=== PATIENT | male | born 2000 | race Caucasian/White ===

== ENCOUNTER 2021-03-12 16:37 | Emergency (ER) | payer BC, MEDICAID ==
[~2021-03-12] VITALS: Ht 177.8 cm; Wt 33.6 kg
[~2021-03-12 16:37] MED LIST: AMPH30TA3 PO; ONDA4TAB12 PO
[2021-03-12] MEDS ORDERED: ibuprofen tablet 400 MG TABLET PO ONE (17:30)
[2021-03-12] MEDS ORDERED: acetaminophen 325mg tablet PO ONE (17:30)
[2021-03-12] MEDS ORDERED: BACI1PAC7 TOP (17:53)
[2021-03-12] MEDS ORDERED: bacitracin 15gm ointment TP ONE (17:55)
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
[2021-03-12 18:16] LABS: CLARITY,URINE CLEAR (Clear); COLOR,URINE YELLOW (Yellow); GLUCOSE, URINE NEGATIVE (Neg); KETONES,URINE NEGATIVE (Neg); LEUKOCYTE ESTERASE ,URINE NEGATIVE (Neg); NITRITES, URINE NEGATIVE (Neg); OCCULT BLOOD,URINE NEGATIVE (Neg); PROTEIN,URINE NEGATIVE (Neg); UROBILINOGEN,URINE 0.2 E.U/dL (0.2-1.0)
[2021-03-12 18:17] LABS: UA COLLECTION TYPE URINAL
[2021-03-12 18:28] VITALS: BP 131/78
== END 2021-03-12 18:29 | disposition home or self-care (01) ==
LOC: ER 16:37
DX: S40.212A Abrasion of left shoulder, initial encounter (principal); M54.2 Cervicalgia; M54.9 Dorsalgia, unspecified; F17.210 Nicotine dependence, cigarettes, uncomplicated; V19.40XA Pedal cycle driver injured in collision with unspecified motor vehicles in traffic accident, initial encounter; Y93.89 Activity, other specified; Y92.89 Other specified places as the place of occurrence of the external cause; Y99.8 Other external cause status
CPT/HCPCS: 70450; 71045; 72125; 73030; 73080; 73564; 81003; 99285

== ENCOUNTER 2021-03-19 11:14 | Emergency (ER) | payer OTHER, MEDICAID ==
[~2021-03-19] VITALS: Ht 182.9 cm; Wt 74.1 kg
[~2021-03-19 11:14] MED LIST changes: +BACI1PAC7 TOP
[2021-03-19 13:09] LABS: BASOPHILS % (AUTO) 0.3 % (0-1); EOSINOPHILS # (AUTO) 0.1 X10'3 (0-0.9); HEMATOCRIT 38.5 % (42.0-52.0); HEMOGLOBIN 13.2 g/dl (14.0-17.9); LYMPHOCYTES # (AUTO) 1.2 X10'3 (1.1-4.8); LYMPHOCYTES % (AUTO) 23.3 % (21-51); MEAN CORPUSCULAR HEMOGLOBIN 31.6 PG (27.0-31.0); MEAN CORPUSCULAR HGB CONC 34.3 g/dL (33.0-36.5); MEAN CORPUSCULAR VOLUME 92.3 FL (78-98); MEAN PLATELET VOLUME 7.8 FL (7.4-10.4); MONOCYTES # (AUTO) 0.4 X10'3 (0-0.9); MONOCYTES % (AUTO) 8.9 % (2-12); NEUTROPHILS # (AUTO) 3.3 X10'3 (1.8-7.7); NEUTROPHILS % (AUTO) 65.5 % (42-75); PLATELET COUNT 213 X10'3 (140-440); RED BLOOD COUNT 4.17 X10'6 (4.70-6.10); RED CELL DISTRIBUTION WIDTH 12.8 % (11.5-14.5); WHITE BLOOD COUNT 5.1 X10'3 (4.5-11.0)
[2021-03-19 13:32] LABS: ALANINE AMINOTRANSFERASE 21 U/L (12-78); ALBUMIN 3.7 G/DL (3.4-5.0); ALBUMIN/GLOBULIN RATIO 1.3 (1.1-1.5); ALKALINE PHOSPHATASE 64 IU/L (20-180); ANION GAP 7 (8-16); ASPARTATE AMINO TRANSFERASE 11 U/L (10-37); BILIRUBIN,TOTAL 1.4 MG/DL (0.1-1.0); BLOOD UREA NITROGEN 11 MG/DL (7-18); BUN/CREATININE RATIO 13.1 (5.4-32.0); CALCIUM 8.4 MG/DL (8.5-10.1); CHLORIDE 109 MMOL/L (99-107); CREATININE 0.84 MG/DL (0.60-1.10); ETHANOL < 0.010 GM/DL (0.0-0.010); GLUCOSE 93 MG/DL (70-104); SODIUM 146 MMOL/L (135-145); TOTAL CARBON DIOXIDE 30.4 MMOL/L (24-32); TOTAL PROTEIN 6.5 G/DL (6.4-8.2); eGFR > 90 ML/MIN
[2021-03-19 13:47] LABS: URINE AMPHETAMINE SCREEN NEGATIVE (Neg); URINE BARBITUATE SCREEN NEGATIVE (Neg); URINE BENZODIAZEPINES SCREEN NEGATIVE (Neg); URINE CANNABINOID SCREEN POSITIVE (Neg); URINE COCAINE SCREEN NEGATIVE (Neg); URINE METHADONE SCREEN NEGATIVE (Neg); URINE OPIATE SCREEN NEGATIVE (Neg); URINE PHENCYCLIDINE SCREEN NEGATIVE (Neg)
[2021-03-19 14:32] VITALS: BP 121/84
== END 2021-03-19 14:33 | disposition home or self-care (01) ==
LOC: ER 11:15
DX: S40.212A Abrasion of left shoulder, initial encounter (principal); T67.1XXA Heat syncope, initial encounter; F12.90 Cannabis use, unspecified, uncomplicated; Z79.2 Long term (current) use of antibiotics; Z79.899 Other long term (current) drug therapy; X58.XXXA Exposure to other specified factors, initial encounter; Y93.89 Activity, other specified; Y92.89 Other specified places as the place of occurrence of the external cause; Y99.8 Other external cause status
CPT/HCPCS: 36415; 80053; 80305; 80320; 85025; 93005; 99285

== ENCOUNTER 2021-06-04 11:27 | Emergency (ER) | payer OTHER, MEDICAID ==
[~2021-06-04] VITALS: Ht 177.8 cm; Wt 77.3 kg
[~2021-06-04 11:27] MED LIST changes: -BACI1PAC7 TOP
[2021-06-04 13:22] VITALS: BP 114/69
[2021-06-04] MEDS ORDERED: ONDA4TAB12 PO (13:42)
== END 2021-06-04 13:50 | disposition home or self-care (01) ==
LOC: ER 11:27
DX: T88.1XXA Other complications following immunization, not elsewhere classified, initial encounter (principal); R06.02 Shortness of breath; R11.0 Nausea; R10.84 Generalized abdominal pain; M79.601 Pain in right arm; Z79.899 Other long term (current) drug therapy; Y92.89 Other specified places as the place of occurrence of the external cause
CPT/HCPCS: 99283

== ENCOUNTER 2021-06-14 23:21 | Emergency (ER) | payer OTHER, MEDICAID ==
[~2021-06-14] VITALS: Ht 180.3 cm; Wt 68.2 kg
[2021-06-14 23:37] VITALS: BP 129/80
[2021-06-14] MEDS ORDERED: ALBU8HFA PO (23:47)
[2021-06-14] MEDS ORDERED: BENZ-16 PO (23:47)
== END 2021-06-15 01:22 | disposition home or self-care (01) ==
LOC: ER 23:22
DX: J06.9 Acute upper respiratory infection, unspecified (principal); Z20.822 Contact with and (suspected) exposure to COVID-19; J45.909 Unspecified asthma, uncomplicated; Z79.899 Other long term (current) drug therapy
CPT/HCPCS: 87635; 93005; 99284; C9803

== ENCOUNTER → 2021-09-26 | Emergency (ER) | payer OTHER, MEDICAID ==
[~2021-09-26] VITALS: Ht 180.3 cm; Wt 81.0 kg
[~2021-09-26] MED LIST changes: +HYDR-3964 PO; +HYDROcodone/acetaminophen 10/325mg tab PO ONE; +ONDA4TAB6 PO; +acetaminophen 325mg tablet PO ONE; +ondansetron/PF 4mg/2ml inj IV ONE
[2021-09-26 09:01] VITALS: BP 122/75
== END | disposition home or self-care (01) ==
LOC: ER 08:45
DX: S53.401A Unspecified sprain of right elbow, initial encounter (principal); J45.909 Unspecified asthma, uncomplicated; Z79.899 Other long term (current) drug therapy; V19.9XXA Pedal cyclist (driver) (passenger) injured in unspecified traffic accident, initial encounter; Y93.89 Activity, other specified; Y92.89 Other specified places as the place of occurrence of the external cause; Y99.8 Other external cause status
CPT/HCPCS: 73080; 96374; 99283; J2405

== ENCOUNTER 2021-11-14 20:21 | Emergency (ER) | payer OTHER, MEDICAID ==
[~2021-11-14] VITALS: Ht 180.3 cm; Wt 72.7 kg
[~2021-11-14 20:21] MED LIST changes: -HYDR-3964 PO; -HYDROcodone/acetaminophen 10/325mg tab PO ONE; -acetaminophen 325mg tablet PO ONE; -ondansetron/PF 4mg/2ml inj IV ONE
[2021-11-14] MEDS ORDERED: naproxen 500mg tablet PO ONE (20:35)
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
[2021-11-14] MEDS ORDERED: ACET-1059 PO (21:25)
[2021-11-14 22:10] VITALS: BP 127/79
== END 2021-11-14 22:12 | disposition home or self-care (01) ==
LOC: ER 20:22
DX: S86.812A Strain of other muscle(s) and tendon(s) at lower leg level, left leg, initial encounter (principal); M25.562 Pain in left knee; J45.909 Unspecified asthma, uncomplicated; F12.90 Cannabis use, unspecified, uncomplicated; Z79.899 Other long term (current) drug therapy; W19.XXXA Unspecified fall, initial encounter; Y93.89 Activity, other specified; Y92.89 Other specified places as the place of occurrence of the external cause; Y99.8 Other external cause status
CPT/HCPCS: 73564; 99284

== ENCOUNTER 2021-12-29 21:46 | Emergency (ER) | payer OTHER, MEDICAID ==
[~2021-12-29] VITALS: Ht 175.3 cm; Wt 78.0 kg
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
[2021-12-29] MEDS ORDERED: TETanus/Pertussis (Acell)/Diphther VAC/PF (Tdap-Adult) 0.5ml syringe IMVAC ONE (23:30)
[2021-12-30 00:23] VITALS: BP 134/78
== END 2021-12-30 00:24 | disposition home or self-care (01) ==
LOC: ER 21:46
DX: S61.412A Laceration without foreign body of left hand, initial encounter (principal); J45.909 Unspecified asthma, uncomplicated; F12.90 Cannabis use, unspecified, uncomplicated; Z79.899 Other long term (current) drug therapy; Z20.3 Contact with and (suspected) exposure to rabies; Y08.89XA Assault by other specified means, initial encounter; Y93.89 Activity, other specified; Y92.89 Other specified places as the place of occurrence of the external cause; Y99.8 Other external cause status
CPT/HCPCS: 73120; 90471; 90715; 99283

== ENCOUNTER 2022-02-23 16:00 | Emergency (ER) | payer OTHER, MEDICAID ==
[~2022-02-23] VITALS: Ht 180.3 cm; Wt 72.7 kg
[2022-02-23 16:58] VITALS: BP 130/83
== END 2022-02-23 18:16 | disposition home or self-care (01) ==
LOC: ER 16:00
DX: S63.612A Unspecified sprain of right middle finger, initial encounter (principal); W18.39XA Other fall on same level, initial encounter; Y93.89 Activity, other specified; Y92.89 Other specified places as the place of occurrence of the external cause; Y99.8 Other external cause status
CPT/HCPCS: 29130; 73140; 99283

== ENCOUNTER → 2022-05-17 | Emergency (ER) | payer OTHER, MEDICAID ==
[~2022-05-17] VITALS: Ht 180.3 cm; Wt 77.3 kg
[~2022-05-17] MED LIST changes: +ondansetron 4mg rapidly disintigrating tab PO ONE; +oxyCODONE IR 5mg (immed. release) tablet PO ONE
[2022-05-17 13:20] VITALS: BP 110/67
== END | disposition home or self-care (01) ==
LOC: ER 13:06
DX: R07.89 Other chest pain (principal); J45.909 Unspecified asthma, uncomplicated; F12.90 Cannabis use, unspecified, uncomplicated
CPT/HCPCS: 71046; 99283

== ENCOUNTER 2022-05-24 00:35 | Emergency (ER) | payer OTHER, MEDICAID ==
[~2022-05-24] VITALS: Ht 182.9 cm; Wt 76.8 kg
[~2022-05-24 00:35] MED LIST changes: -ondansetron 4mg rapidly disintigrating tab PO ONE; -oxyCODONE IR 5mg (immed. release) tablet PO ONE
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
[2022-05-24 03:48] VITALS: BP 116/75
== END 2022-05-24 03:51 | disposition home or self-care (01) ==
LOC: ER 00:35
DX: S20.212A Contusion of left front wall of thorax, initial encounter (principal); F12.10 Cannabis abuse, uncomplicated; J45.909 Unspecified asthma, uncomplicated; Z79.899 Other long term (current) drug therapy; W18.39XA Other fall on same level, initial encounter; Y93.89 Activity, other specified; Y92.89 Other specified places as the place of occurrence of the external cause; Y99.8 Other external cause status
CPT/HCPCS: 71045; 74177; 99285; J3490; 99284

== ENCOUNTER 2022-06-10 22:17 | Emergency (ER) | payer OTHER, MEDICAID ==
[~2022-06-10] VITALS: Ht 182.9 cm; Wt 63.6 kg
[2022-06-10] MEDS ORDERED: ibuprofen tablet 400 MG TABLET PO ONE (23:25)
[2022-06-10] MEDS ORDERED: acetaminophen 325mg tablet PO ONE (23:25)
[2022-06-10 23:50] VITALS: BP 135/78
== END 2022-06-10 23:52 | disposition home or self-care (01) ==
LOC: ER 22:18
DX: S89.91XA Unspecified injury of right lower leg, initial encounter (principal); F12.10 Cannabis abuse, uncomplicated; J45.909 Unspecified asthma, uncomplicated; Z79.899 Other long term (current) drug therapy; V00.131A Fall from skateboard, initial encounter; Y92.89 Other specified places as the place of occurrence of the external cause; Y99.8 Other external cause status; Y93.89 Activity, other specified
CPT/HCPCS: 73564; 99283

== ENCOUNTER 2022-09-12 11:33 | Emergency (ER) | payer OTHER, MEDICAID ==
[~2022-09-12] VITALS: Ht 180.3 cm; Wt 75.0 kg
[2022-09-12 12:01] VITALS: BP 128/74
[2022-09-12] MEDS ORDERED: OXYM-21 BOTHNARES (16:04)
== END 2022-09-12 16:22 | disposition home or self-care (01) ==
LOC: ER 11:34
DX: B34.9 Viral infection, unspecified (principal); R09.81 Nasal congestion; R05.9 Cough, unspecified; J45.909 Unspecified asthma, uncomplicated; F12.90 Cannabis use, unspecified, uncomplicated; Z72.89 Other problems related to lifestyle; Z79.899 Other long term (current) drug therapy
CPT/HCPCS: 99282

== ENCOUNTER 2023-03-15 10:55 | Emergency (ER) | payer MEDICAID, OTHER ==
[~2023-03-15] VITALS: Ht 182.9 cm; Wt 72.7 kg
[~2023-03-15 10:55] MED LIST changes: +OXYM-21 BOTHNARES
[2023-03-15 11:05] VITALS: BP 124/82
[2023-03-15] MEDS ORDERED: TETanus/Pertussis (Acell)/Diphther VAC/PF (Tdap-Adult) 0.5ml syringe IMVAC ONE (13:15)
== END 2023-03-15 13:42 | disposition home or self-care (01) ==
LOC: ER 10:56
DX: S61.412A Laceration without foreign body of left hand, initial encounter (principal); S66.892A Other injury of other specified muscles, fascia and tendons at wrist and hand level, left hand, initial encounter; J45.909 Unspecified asthma, uncomplicated; F12.90 Cannabis use, unspecified, uncomplicated; Z72.89 Other problems related to lifestyle; Z79.899 Other long term (current) drug therapy; W26.8XXA Contact with other sharp object(s), not elsewhere classified, initial encounter; Y93.89 Activity, other specified; Y92.89 Other specified places as the place of occurrence of the external cause; Y99.8 Other external cause status
CPT/HCPCS: 73130; 90471; 90715; 99284

== ENCOUNTER 2023-04-16 15:19 | Emergency (ER) | payer MEDICAID ==
[~2023-04-16] VITALS: Ht 182.9 cm; Wt 63.6 kg
[~2023-04-16 15:19] MED LIST changes: +CARB15DR91 LEFT EAR
[2023-04-16 16:00] VITALS: BP 119/78
--- NOTE | 2023-04-16 16:03 | NUR ---
JESSICA CALLED: LOG#[id number]
== END 2023-04-16 21:18 | disposition left against medical advice (07) ==
LOC: ER 15:19
DX: M25.551 Pain in right hip (principal); Z53.21 Procedure and treatment not carried out due to patient leaving prior to being seen by health care provider
CPT/HCPCS: 99281

== ENCOUNTER 2023-10-30 17:47 | Emergency (ER) | payer BC, MEDICAID ==
[~2023-10-30] VITALS: Ht 180.3 cm; Wt 74.1 kg
[2023-10-30 19:18] LABS: BILIRUBIN,URINE NEGATIVE (Neg); CLARITY,URINE CLEAR (Clear); COLOR,URINE YELLOW (Yellow); GLUCOSE, URINE NEGATIVE (Neg); KETONES,URINE NEGATIVE (Neg); LEUKOCYTE ESTERASE ,URINE NEGATIVE (Neg); NITRITES, URINE NEGATIVE (Neg); OCCULT BLOOD,URINE NEGATIVE (Neg); PROTEIN,URINE NEGATIVE (Neg); UROBILINOGEN,URINE 0.2 E.U/dL (0.2-1.0)
[2023-10-30 19:25] LABS: BASOPHILS % (AUTO) 0.6 % (0-1); EOSINOPHILS # (AUTO) 0.1 X10'3 (0-0.9); EOSINOPHILS % (AUTO) 1.8 % (0-6); HEMATOCRIT 43.8 % (42.0-52.0); HEMOGLOBIN 14.9 g/dl (14.0-17.9); LYMPHOCYTES # (AUTO) 1.8 X10'3 (1.1-4.8); LYMPHOCYTES % (AUTO) 23.9 % (21-51); MEAN CORPUSCULAR HEMOGLOBIN 31.3 PG (27.0-31.0); MEAN CORPUSCULAR HGB CONC 33.9 g/dL (33.0-36.5); MEAN CORPUSCULAR VOLUME 92.4 FL (78-98); MEAN PLATELET VOLUME 7.9 FL (7.4-10.4); MONOCYTES # (AUTO) 0.7 X10'3 (0-0.9); MONOCYTES % (AUTO) 9.5 % (2-12); NEUTROPHILS # (AUTO) 4.9 X10'3 (1.8-7.7); NEUTROPHILS % (AUTO) 64.2 % (42-75); PLATELET COUNT 282 X10'3 (140-440); RED BLOOD COUNT 4.75 X10'6 (4.70-6.10); RED CELL DISTRIBUTION WIDTH 13.1 % (11.5-14.5); WHITE BLOOD COUNT 7.6 X10'3 (4.5-11.0)
[2023-10-30 19:25] LABS: UA COLLECTION TYPE VOIDED
[2023-10-30 19:38] LABS: ALANINE AMINOTRANSFERASE 13 U/L (12-78); ALBUMIN 4.3 G/DL (3.4-5.0); ALBUMIN/GLOBULIN RATIO 1.1 (1.1-1.5); ALKALINE PHOSPHATASE 86 IU/L (46-116); ANION GAP 6 (8-16); ASPARTATE AMINO TRANSFERASE 21 U/L (10-37); BILIRUBIN,TOTAL 0.7 MG/DL (0.1-1.0); BLOOD UREA NITROGEN 8 MG/DL (7-18); BUN/CREATININE RATIO 9.2 (10.0-20.0); CALCIUM 9.1 MG/DL (8.5-10.1); CHLORIDE 102 MMOL/L (99-107); CREATININE 0.87 MG/DL (0.60-1.10); GLUCOSE 85 MG/DL (70-104); LIPASE 40 U/L (16-77); POTASSIUM 3.8 MMOL/L (3.5-5.1); SODIUM 139 MMOL/L (135-145); TOTAL CARBON DIOXIDE 31.1 MMOL/L (24-32); TOTAL PROTEIN 8.1 G/DL (6.4-8.2); eCRCL 138 ML/MIN; eGFR > 90 ML/MIN
[2023-10-30 23:11] VITALS: BP 117/76; PULSE 91; RESP 18; TEMP 98.3; O2SAT 100
== END 2023-10-30 23:18 | disposition home or self-care (01) ==
LOC: ER 17:47
DX: M54.50 Low back pain, unspecified (principal); R11.10 Vomiting, unspecified; J45.909 Unspecified asthma, uncomplicated; F12.90 Cannabis use, unspecified, uncomplicated; Z72.89 Other problems related to lifestyle; Z88.8 Allergy status to other drugs, medicaments and biological substances; Z79.899 Other long term (current) drug therapy; Z79.2 Long term (current) use of antibiotics
CPT/HCPCS: 36415; 71045; 72100; 80053; 81003; 83690; 85025; 99284; 99285

== ENCOUNTER 2024-01-21 03:16 | Emergency (ER) | payer MEDICAID ==
[~2024-01-21] VITALS: Ht 182.9 cm; Wt 65.9 kg
[2024-01-21 09:28] VITALS: TEMP 98.3
[2024-01-21 10:00] VITALS: BP 137/81; PULSE 73; RESP 12; O2SAT 98
== END 2024-01-21 10:03 | disposition home or self-care (01) ==
LOC: ER 03:16
DX: F15.10 Other stimulant abuse, uncomplicated (principal); J45.909 Unspecified asthma, uncomplicated; F12.90 Cannabis use, unspecified, uncomplicated; Z88.8 Allergy status to other drugs, medicaments and biological substances; Z88.6 Allergy status to analgesic agent; Z79.899 Other long term (current) drug therapy
CPT/HCPCS: 99281

== ENCOUNTER 2024-12-08 22:02 | Emergency (ER) | payer MEDICAID ==
[~2024-12-08] VITALS: Ht 182.9 cm; Wt 59.1 kg
[~2024-12-08 22:02] MED LIST changes: +ONDA-243 PO; -ONDA4TAB12 PO
[2024-12-09] MEDS: ketorolac trometh 30MG/ML vial 30 MG/ML VIAL IM ONE
[2024-12-09 00:06] VITALS: BP 110/60; PULSE 79; RESP 18; TEMP 98.6; O2SAT 98
== END 2024-12-09 00:08 | disposition home or self-care (01) ==
LOC: ER 22:02
DX: M25.551 Pain in right hip (principal); M79.651 Pain in right thigh; J45.909 Unspecified asthma, uncomplicated; F12.90 Cannabis use, unspecified, uncomplicated; Z88.8 Allergy status to other drugs, medicaments and biological substances; Z88.6 Allergy status to analgesic agent; Z79.899 Other long term (current) drug therapy
CPT/HCPCS: 73502; 96372; 99283; J1885

== ENCOUNTER 2025-01-29 11:14 | Emergency (ER) | payer MEDICAID ==
[~2025-01-29] VITALS: Ht 182.9 cm; Wt 74.7 kg
[2025-01-29 11:16] VITALS: BP 121/84; PULSE 88; RESP 14; O2SAT 100
[2025-01-29] MEDS ORDERED: ibuprofen tablet 400 MG TABLET PO STA (12:15)
[2025-01-29] MEDS: acetaminophen 325mg tablet PO STA (12:28)
[2025-01-29] MEDS ORDERED: ACET-1025 PO (12:59)
[2025-01-29] MEDS: bacitracin 15gm ointment TP STA (13:18)
[2025-01-29 13:36] VITALS: TEMP 98.1
== END 2025-01-29 13:37 | disposition home or self-care (01) ==
LOC: ER 11:14
DX: S50.02XA Contusion of left elbow, initial encounter (principal); J45.909 Unspecified asthma, uncomplicated; F12.90 Cannabis use, unspecified, uncomplicated; Z88.6 Allergy status to analgesic agent; Z88.8 Allergy status to other drugs, medicaments and biological substances; W31.2XXA Contact with powered woodworking and forming machines, initial encounter; Y93.89 Activity, other specified; Y92.89 Other specified places as the place of occurrence of the external cause; Y99.8 Other external cause status
CPT/HCPCS: 73080; 73090; 99284

== ENCOUNTER 2025-02-10 22:03 | Emergency (ER) | payer MEDICAID ==
[~2025-02-10] VITALS: Ht 182.9 cm; Wt 75.8 kg
[2025-02-10 22:11] VITALS: BP 146/89; PULSE 86; RESP 16; TEMP 97.1; O2SAT 97
== END 2025-02-10 23:23 | disposition left against medical advice (07) ==
LOC: ER 22:04
DX: J02.9 Acute pharyngitis, unspecified (principal); Z53.21 Procedure and treatment not carried out due to patient leaving prior to being seen by health care provider; Z88.6 Allergy status to analgesic agent; Z88.8 Allergy status to other drugs, medicaments and biological substances

== ENCOUNTER 2025-05-08 21:50 | Emergency (ER) | payer MEDICAID ==
[~2025-05-08] VITALS: Ht 182.9 cm; Wt 65.9 kg
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
[2025-05-08 23:32] VITALS: BP 136/84; PULSE 82; RESP 16; TEMP 98.1; O2SAT 98
== END 2025-05-08 23:36 | disposition home or self-care (01) ==
LOC: ER 21:51
DX: S01.311A Laceration without foreign body of right ear, initial encounter (principal); J45.909 Unspecified asthma, uncomplicated; F12.90 Cannabis use, unspecified, uncomplicated; Z88.6 Allergy status to analgesic agent; Z88.8 Allergy status to other drugs, medicaments and biological substances; Z79.899 Other long term (current) drug therapy; Z72.89 Other problems related to lifestyle; W05.1XXA Fall from non-moving nonmotorized scooter, initial encounter; Y93.89 Activity, other specified; Y92.89 Other specified places as the place of occurrence of the external cause; Y99.8 Other external cause status
CPT/HCPCS: 12001; 12011; 99284; A6449

== ENCOUNTER 2025-05-15 11:44 | Emergency (ER) | payer MEDICAID ==
[~2025-05-15] VITALS: Ht 182.9 cm; Wt 78.6 kg
[2025-05-15] MEDS: bacitracin 15gm ointment TP ONE (12:19)
--- NOTE | 2025-05-15 12:21 | Physician Documentation ---
History of Present Illness ~ Chief Complaint: Suture Removal Stated Complaint: SUTURE REMOVAL Time Seen by MD: 11:54 Primary Medical Doctor: [facility] PHIL Who presents to the emergency department for suture removal. Tetanus Within 5 Years: Yes (2022) Medication Reconciliation Allergies: Coded Allergies: diphenhydramine (Verified Allergy, Unknown, 05/08/25) ibuprofen (Verified Allergy, Unknown, 05/08/25) Scheduled Amphet Asp/Amphet/D-Amphet (Adderall 30 Mg Tablet), 30 MG PO DAILY, (Reported) Carbamide Peroxide (Debrox), 5 DROP LEFT EAR Q12H ONDANSETRON ODT 4mg tablet (Ondansetron Odt), 1 TABLET PO Q6H Ondansetron Hcl (Zofran), 1 TAB PO Q6H Oxymetazoline HCl (Oxymetazoline HCl), 2 SPRAYS BOTHNARES Q12H Scheduled PRN ONDANSETRON ODT 4mg tablet (Ondansetron Odt), 1 TABLET PO Q6H PRN for nausea/vomiting Past Medical History 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*, 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 Past Surgical History: no surgical history Alcohol Use: Occasionally Drug Use: marijuana Lives with: Family Lives In: Home Occupation: student Physical Exam Vital Signs: Temperature: 98.0, Source: Temporal, Heart Rate: 87, Respiratory Rate: 16, BP: 126/75, Pulse Oximetry: 98, Weight: 78.600 Oxygen Flow Rate: 0 Progress Results/Orders Results/Orders Completed Orders - TIERNEY LINDO Bacitracin Ointment (Bacitracin Ointment (05/15/25 12:15) Vital Signs 05/15/25 11:46 Temp 98.0 Pulse 87 Resp 16 B/P (MAP) 126/75 Pulse Ox 98 O2 Flow Rate 0 Medical Decision Making Findings He is remembering no complications. Departure Disposition: 01 HOME / SELF CARE / HOMELESS Impression: Primary Impression: Encounter for removal of sutures Condition: Stable Discharge Instructions: Suture Removal, Care After Referrals: NO PRIMARY CARE PROVIDER (PCP) Education Educated: Patient Educated regarding: need for follow up TIERNEY LINDO May 15, 2025 12:21
[2025-05-15 12:33] VITALS: BP 122/72; PULSE 69; RESP 15; TEMP 98; O2SAT 99
== END 2025-05-15 12:35 | disposition home or self-care (01) ==
LOC: ER 11:44
DX: T14.8XXD Other injury of unspecified body region, subsequent encounter (principal); J45.909 Unspecified asthma, uncomplicated; F12.90 Cannabis use, unspecified, uncomplicated; Z88.6 Allergy status to analgesic agent; Z72.89 Other problems related to lifestyle; Z79.899 Other long term (current) drug therapy; X58.XXXD Exposure to other specified factors, subsequent encounter
CPT/HCPCS: 99282